=== PATIENT | female | born 2000 | race Caucasian/White ===

== ENCOUNTER 2020-10-24 20:38 | Emergency (ER) | payer OTHER, SELFPAY ==
[~2020-10-24] VITALS: Ht 154.9 cm; Wt 59.0 kg
[2020-10-24 20:40] VITALS: Ht 154.9 cm; Wt 59.0 kg
[2020-10-24 21:32] VITALS: BP 144/90
== END 2020-10-24 23:01 | disposition home or self-care (01) ==
LOC: ED 20:38
DX: J02.9 Acute pharyngitis, unspecified (principal); R05 Cough; M79.10 Myalgia, unspecified site; Z20.828 Contact with and (suspected) exposure to other viral communicable diseases
CPT/HCPCS: U0003